=== PATIENT | female | born 1990 | race Two or more races ===

== ENCOUNTER 2017-03-23 05:39 | Inpatient (IN) | payer MEDICAID ==
[~2017-03-23] VITALS: Ht 160 cm; Wt 66.8 kg
[~2017-03-23 05:39] MED LIST: DOCU-30 PO; FENU500C PO; IBUP-1222 PO; OXYC-302 PO; PREN1TAB27 PO; SULF1TAB24 PO; TRAM50TA2 PO
[2017-03-23] MEDS: LACTATED RINGERS 1,000 ML IV SCH ×6 (05:41→20:24)
[2017-03-23] MEDS ORDERED: OXYTOCIN 30U/ 0.9% NaCL 500ML 500 ML IV SCH (05:41)
[2017-03-23] MEDS ORDERED: SODIUM CITRATE/CITRIC ACID 30 ML UDC ONE ×2 (05:44→07:54)
[2017-03-23] MEDS ORDERED: NEWBORN KIT ONE (05:44)
[2017-03-23] MEDS ORDERED: METOCLOPRAMIDE 5 MG/ML, 2ML ONE ×2 (05:44→07:54)
[2017-03-23] MEDS ORDERED: OXYTOCIN 30U/ 0.9% NaCL 500ML 500 ML ONE (05:44)
[2017-03-23 05:54] VITALS: BP 128/68
[2017-03-23] MEDS ORDERED: LACTATED RINGERS 1,000 ML IVBOLUS ONE (06:00)
[2017-03-23] MEDS ORDERED: METOCLOPRAMIDE 5 MG/ML, 2ML IV ONE (06:00)
[2017-03-23] MEDS ORDERED: SODIUM CITRATE/CITRIC ACID 30 ML UDC PO ONE (06:00)
[2017-03-23] MEDS ORDERED: FENTANYL PF 100 MCG/2ML ONE (07:17)
[2017-03-23] MEDS ORDERED: LABETALOL 5MG/ML, 20ML IV PRN (07:30)
[2017-03-23] MEDS ORDERED: ONDANSETRON 2MG/ML, 2ML IVPush PRN (07:30)
[2017-03-23] MEDS ORDERED: PROMETHAZINE 25 MG/ML, 1ML IV PRN (07:30)
[2017-03-23] MEDS ORDERED: MEPERIDINE/PF 25MG/0.5ML IVPush PRN (07:30)
[2017-03-23] MEDS ORDERED: ALBUTEROL SULFATE 2.5 MG/3 ML NPPB PRN (07:30)
[2017-03-23] MEDS ORDERED: HYDROcodone/APAP 7.5-325MG/15ML UDC PO PRN (07:30)
[2017-03-23] MEDS ORDERED: OXYcodone 5 MG/5 ML ORAL.SOL UDC PO PRN (07:30)
[2017-03-23] MEDS ORDERED: hydrALAzine 20 MG/ML, 1ML IV PRN (07:30)
[2017-03-23] MEDS ORDERED: MIDAZOLAM 1 MG/ML, 2ML IV PRN (07:30)
[2017-03-23] MEDS ORDERED: EPHEDRINE 50 MG/ML, 1ML IVPush PRN (07:30)
[2017-03-23] MEDS ORDERED: FENTANYL PF 100 MCG/2ML IV PRN (07:30)
[2017-03-23] MEDS ORDERED: DEXAMETHASONE 4 MG/ML, 1ML ONE (07:54)
[2017-03-23] MEDS ORDERED: EPHEDRINE 50 MG/ML, 1ML ONE (07:54)
[2017-03-23] MEDS ORDERED: OXYTOCIN 10 UNITS/ML, 1ML ONE (07:54)
[2017-03-23] MEDS ORDERED: PHENYLEPHRINE 10 MG/ML ONE (07:54)
[2017-03-23] MEDS ORDERED: ONDANSETRON 2MG/ML, 2ML ONE (07:54)
[2017-03-23] MEDS ORDERED: CEFAZOLIN 1,000 MG ONE (07:54)
[2017-03-23] MEDS: OXYTOCIN 30U/ 0.9% NaCL 500ML 500 ML IV SCH ×2 (09:06→19:06)
[2017-03-23] MEDS ORDERED: ONDANSETRON 2MG/ML, 2ML IV PRN (09:30)
[2017-03-23] MEDS ORDERED: METHYLERGONOVINE 0.2 MG/ML IM PRN (09:30)
[2017-03-23] MEDS ORDERED: DIPH,PERTUSS(ACELL),TET VAC/PF NC IM-VACC PRN (09:30)
[2017-03-23] MEDS ORDERED: MEASLES,MUMPS&RUBELLA VACC/PF 0.5 ML SQ-VACC PRN (09:30)
[2017-03-23] MEDS ORDERED: METOCLOPRAMIDE 5 MG/ML, 2ML IV PRN (09:30)
[2017-03-23] MEDS ORDERED: LACTATED RINGERS 1,000 ML IV SCH (09:30)
[2017-03-23] MEDS ORDERED: CARBOPROST TROMETHAMINE 250 MCG/ML, 1ML IM PRN (09:30)
[2017-03-23] MEDS ORDERED: BISACODYL 10 MG SUPP PR PRN (09:30)
[2017-03-23] MEDS ORDERED: morphine SULFATE 10 MG/ML, 1ML IVPush PRN ×2 (09:30)
[2017-03-23] MEDS ORDERED: OXYcodone IR 5MG TABLET PO PRN (09:30)
[2017-03-23] MEDS ORDERED: MISOPROSTOL 200 MCG TABLET PR PRN (09:30)
[2017-03-23] MEDS ORDERED: GLYCERIN ADULT SUPP PR PRN (09:30)
[2017-03-23] MEDS ORDERED: CALCIUM CARBONATE 500 MG TAB.CHEW PO PRN (09:30)
[2017-03-23] MEDS ORDERED: ACETAMINOPHEN 325 MG TABLET PO PRN ×2 (09:30)
[2017-03-23] MEDS: OXYcodone IR 5MG TABLET PO PRN ×3 (11:21→23:36)
[2017-03-23 11:50] VITALS: BP 107/72
[2017-03-23] MEDS: KETOROLAC 30 MG/1 ML IV SCH ×2 (13:50→20:26)
[2017-03-23 16:00] VITALS: BP 119/74
[2017-03-23 20:10] VITALS: BP 108/69
[2017-03-23] MEDS: DOCUSATE 100 MG CAPSULE PO PRN (20:28)
[2017-03-23 23:31] VITALS: BP 115/74
[2017-03-23] MEDS ORDERED: OXYC5CAP4 PO (23:41)
[2017-03-23] MEDS ORDERED: DOCU-30 PO (23:42)
[2017-03-23] MEDS ORDERED: IBUP-1222 PO (23:42)
[2017-03-24] MEDS: LACTATED RINGERS 1,000 ML IV SCH ×5 (01:06→17:06)
[2017-03-24] MEDS: KETOROLAC 30 MG/1 ML IV SCH ×2 (02:00→08:32)
[2017-03-24 04:10] VITALS: BP 109/70
[2017-03-24] MEDS: OXYcodone IR 5MG TABLET PO PRN ×4 (04:15→20:24)
[2017-03-24] MEDS: OXYTOCIN 30U/ 0.9% NaCL 500ML 500 ML IV SCH ×2 (05:06→15:06)
[2017-03-24 08:02] VITALS: BP 101/64
[2017-03-24] MEDS ORDERED: KETOROLAC 30 MG/1 ML ONE (08:29)
[2017-03-24] MEDS: PRENATAL VIT/IRON/FA 1 EACH TABLET PO SCH (08:33)
[2017-03-24] MEDS: DOCUSATE 100 MG CAPSULE PO PRN ×2 (08:33→20:24)
[2017-03-24] MEDS: SIMETHICONE 80 MG CHEW TAB PO PRN ×2 (08:46→20:24)
[2017-03-24] MEDS: IBUPROFEN 600 MG TABLET PO PRN (16:24)
[2017-03-24 20:00] VITALS: BP 121/84
[2017-03-25] MEDS: IBUPROFEN 600 MG TABLET PO PRN ×3 (00:41→13:24)
[2017-03-25] MEDS: OXYTOCIN 30U/ 0.9% NaCL 500ML 500 ML IV SCH ×2 (01:06→11:06)
[2017-03-25] MEDS: LACTATED RINGERS 1,000 ML IV SCH ×4 (01:06→11:06)
[2017-03-25] MEDS: OXYcodone IR 5MG TABLET PO PRN ×3 (05:20→16:21)
[2017-03-25] MEDS: DOCUSATE 100 MG CAPSULE PO PRN (07:27)
[2017-03-25 07:30] VITALS: BP 119/76
[2017-03-25] MEDS: PRENATAL VIT/IRON/FA 1 EACH TABLET PO SCH (09:00)
[2017-03-25] MEDS ORDERED: ONDANSETRON ODT 4 MG ONE (12:06)
[2017-03-25] MEDS ORDERED: ONDANSETRON ODT 4 MG PO PRN (12:30)
== END 2017-03-25 16:28 | disposition home or self-care (01) | DRG 766 ==
LOC: LDIP 05:39 → 2NW 11:05
PROVIDERS: ADMIT Student in an Organized Health Care Education/Training Program; ATTEND Student in an Organized Health Care Education/Training Program
PROC: 10D00Z1 Extraction of Products of Conception, Low, Open Approach (ICD-10-PCS; principal; 2017-03-23)
DX: O34.211 Maternal care for low transverse scar from previous cesarean delivery (principal); Z37.0 Single live birth; Z14.1 Cystic fibrosis carrier; O77.0 Labor and delivery complicated by meconium in amniotic fluid; O69.81X0 Labor and delivery complicated by cord around neck, without compression, not applicable or unspecified; Z3A.39 39 weeks gestation of pregnancy; Z90.49 Acquired absence of other specified parts of digestive tract
CPT/HCPCS: 36415; 85025; 86850; 86900; J0690; J1100; J1885; J2405; J3010; Q0162; J2370; J2590; J2765; J7120

== ENCOUNTER 2020-02-24 08:54 | Inpatient (IN) | payer MEDICAID ==
[~2020-02-24] VITALS: Ht 160 cm; Wt 70.0 kg
[~2020-02-24 08:54] MED LIST changes: +DOCU-131 PO; -DOCU-30 PO; +OXYC5CAP2 PO
[2020-02-24] MEDS ORDERED: LACTATED RINGERS 1,000 ML IV SCH ×2 (10:00→12:47)
[2020-02-24] MEDS ORDERED: METOCLOPRAMIDE 5 MG/ML, 2ML IV ONE (10:00)
[2020-02-24] MEDS ORDERED: SODIUM CITRATE/CITRIC ACID 30 ML UDC PO ONE (10:00)
[2020-02-24] MEDS ORDERED: LACTATED RINGERS 1,000 ML IVBOLUS ONE (10:00)
[2020-02-24] MEDS ORDERED: NEWBORN KIT ONE (10:04)
[2020-02-24] MEDS ORDERED: OXYTOCIN 30U/ 0.9% NaCL 500ML 500 ML ONE (10:04)
[2020-02-24] MEDS ORDERED: METOCLOPRAMIDE 5 MG/ML, 2ML ONE (10:04)
[2020-02-24] MEDS ORDERED: SODIUM CITRATE/CITRIC ACID 30 ML UDC ONE (10:04)
[2020-02-24 10:31] LABS: BASOPHILS # (AUTO) 0.02 x10^3/uL (0-0.1); BASOPHILS % (AUTO) 0 % (0-1); EOSINOPHILS # (AUTO) 0.02 x10^3/uL (0-0.4); EOSINOPHILS % (AUTO) 0 % (1-7); LYMPHOCYTES # (AUTO) 1.05 x10^3/uL (1-3.4); LYMPHOCYTES % (AUTO) 17 % (22-44); MD NO; MEAN CORPUSCULAR HEMOGLOBIN 31.5 pg (27.0-34.8); MEAN CORPUSCULAR HGB CONC 33.3 g/dL (32.4-35.8); MEAN CORPUSCULAR VOLUME 94.4 fL (80-100); MONOCYTES # (AUTO) 0.48 x10^3/uL (0.2-0.8); MONOCYTES % (AUTO) 8 % (2-9); NEUTROPHILS # (AUTO) 4.57 x10^3/uL (1.8-6.8); NEUTROPHILS % (AUTO) 74 % (42-75); PLATELET COUNT 151 x10^3/uL (130-400); RED BLOOD COUNT 3.26 x10^6/uL (3.82-5.3); RED CELL DISTRIBUTION WIDTH 20.2 % (9.6-15.2)
[2020-02-24] MEDS ORDERED: FENTANYL PF 100 MCG/2ML ONE (11:15)
[2020-02-24] MEDS ORDERED: KETOROLAC 30 MG/1 ML ONE (12:04)
[2020-02-24] MEDS ORDERED: CEFAZOLIN 1,000 MG ONE ×2 (12:04)
[2020-02-24] MEDS ORDERED: OXYTOCIN 10 UNITS/ML, 1ML ONE ×4 (12:04)
[2020-02-24] MEDS ORDERED: PHENYLEPHRINE 10 MG/ML ONE (12:18)
[2020-02-24] MEDS: OXYTOCIN 30U/ 0.9% NaCL 500ML 500 ML IV SCH ×2 (12:47→22:47)
[2020-02-24] MEDS: LACTATED RINGERS 1,000 ML IV SCH ×2 (12:47→22:47)
[2020-02-24] MEDS ORDERED: MISOPROSTOL 200 MCG TABLET PR PRN (13:00)
[2020-02-24] MEDS ORDERED: EPHEDRINE 50 MG/ML, 1ML IVPush PRN (13:00)
[2020-02-24] MEDS ORDERED: ONDANSETRON 2MG/ML, 2ML IV PRN (13:00)
[2020-02-24] MEDS ORDERED: OXYcodone 5 MG/5 ML ORAL.SOL UDC PO PRN (13:00)
[2020-02-24] MEDS ORDERED: EPHEDRINE 50 MG/ML, 1ML IM PRN (13:00)
[2020-02-24] MEDS ORDERED: LABETALOL 5MG/ML, 20ML IV PRN (13:00)
[2020-02-24] MEDS ORDERED: ACETAMINOPHEN 325 MG TABLET PO PRN (13:00)
[2020-02-24] MEDS ORDERED: FENTANYL PF 100 MCG/2ML IV PRN (13:00)
[2020-02-24] MEDS ORDERED: ONDANSETRON 2MG/ML, 2ML IVPush PRN (13:00)
[2020-02-24] MEDS ORDERED: DIPHENHYDRAMINE 50 MG/ML, 1ML IVPush PRN (13:00)
[2020-02-24] MEDS ORDERED: morphine SULFATE 10 MG/ML, 1ML IVPush PRN (13:00)
[2020-02-24] MEDS ORDERED: OXYcodone IR 5MG TABLET PO PRN (13:00)
[2020-02-24 15:00] VITALS: BP 104/64
[2020-02-24] MEDS: OXYcodone IR 5MG TABLET PO PRN ×2 (16:36→21:34)
[2020-02-24] MEDS: DOCUSATE 100 MG CAPSULE PO PRN (16:37)
[2020-02-24] MEDS: KETOROLAC 30 MG/1 ML IV SCH ×2 (18:09→19:00)
[2020-02-24 20:00] VITALS: BP 105/70
[2020-02-24 21:21] LABS: BASOPHILS # (AUTO) 0.03 x10^3/uL (0-0.1); BASOPHILS % (AUTO) 0 % (0-1); EOSINOPHILS # (AUTO) 0.01 x10^3/uL (0-0.4); EOSINOPHILS % (AUTO) 0 % (1-7); LYMPHOCYTES % (AUTO) 15 % (22-44); MD NO; MEAN CORPUSCULAR HEMOGLOBIN 31.1 pg (27.0-34.8); MEAN CORPUSCULAR HGB CONC 32.6 g/dL (32.4-35.8); MEAN CORPUSCULAR VOLUME 95.2 fL (80-100); MEAN PLATELET VOLUME 8.4 fL (7.4-10.4); MONOCYTES # (AUTO) 0.49 x10^3/uL (0.2-0.8); MONOCYTES % (AUTO) 7 % (2-9); NEUTROPHILS # (AUTO) 5.32 x10^3/uL (1.8-6.8); NEUTROPHILS % (AUTO) 78 % (42-75); PLATELET COUNT 134 x10^3/uL (130-400); RED CELL DISTRIBUTION WIDTH 19.5 % (9.6-15.2)
[2020-02-25 00:05] VITALS: BP 121/81
[2020-02-25] MEDS: OXYcodone IR 5MG TABLET PO PRN ×4 (01:54→16:26)
[2020-02-25 04:10] VITALS: BP 111/76
[2020-02-25] MEDS: KETOROLAC 30 MG/1 ML IV SCH ×5 (06:02→18:00)
[2020-02-25 07:00] VITALS: BP 120/84
[2020-02-25] MEDS: DOCUSATE 100 MG CAPSULE PO PRN ×2 (08:29→20:24)
[2020-02-25] MEDS: PRENATAL VIT/IRON/FA 1 EACH TABLET PO SCH (08:29)
[2020-02-25] MEDS: LACTATED RINGERS 1,000 ML IV SCH (08:47)
[2020-02-25] MEDS: OXYTOCIN 30U/ 0.9% NaCL 500ML 500 ML IV SCH (08:47)
[2020-02-25 12:00] VITALS: BP 118/82
[2020-02-25 17:43] VITALS: BP 128/86
[2020-02-25] MEDS: SIMETHICONE 80 MG CHEW TAB PO PRN (17:43)
[2020-02-25] MEDS: IBUPROFEN 600 MG TABLET PO PRN (17:54)
[2020-02-25 20:00] VITALS: BP 126/84
[2020-02-26] MEDS: IBUPROFEN 600 MG TABLET PO PRN ×3 (00:38→12:17)
[2020-02-26] MEDS: OXYcodone IR 5MG TABLET PO PRN ×4 (00:38→14:37)
[2020-02-26] MEDS: SIMETHICONE 80 MG CHEW TAB PO PRN (08:59)
[2020-02-26] MEDS: PRENATAL VIT/IRON/FA 1 EACH TABLET PO SCH (08:59)
[2020-02-26] MEDS: DOCUSATE 100 MG CAPSULE PO PRN (08:59)
== END 2020-02-26 15:10 | disposition home or self-care (01) | DRG 788 ==
LOC: LDIP 09:57 → 2NW 14:23
PROVIDERS: ADMIT Obstetrics & Gynecology; ATTEND Obstetrics & Gynecology
PROC: 10D00Z1 Extraction of Products of Conception, Low, Open Approach (ICD-10-PCS; principal; 2020-02-24)
DX: O34.211 Maternal care for low transverse scar from previous cesarean delivery (principal); K21.9 Gastro-esophageal reflux disease without esophagitis; O99.613 Diseases of the digestive system complicating pregnancy, third trimester; Z3A.39 39 weeks gestation of pregnancy; Z37.0 Single live birth; Z90.49 Acquired absence of other specified parts of digestive tract; Z82.49 Family history of ischemic heart disease and other diseases of the circulatory system; Z81.1 Family history of alcohol abuse and dependence
CPT/HCPCS: 36415; 85025; 86592; 86850; 86900; G0378; J0690; J1885; J3010; J2370; J2590; J2765; J7120